=== PATIENT | male | born 1985 | race Two or more races ===

== ENCOUNTER 2017-08-07 20:43 | Emergency (ER) | payer SELFPAY ==
[~2017-08-07] VITALS: Ht 175.3 cm; Wt 78.0 kg
[2017-08-07 20:44] VITALS: BP 159/89
[2017-08-07] MEDS ORDERED: KETOROLAC 30 MG/1 ML ONE (21:45)
[2017-08-07] MEDS ORDERED: KETOROLAC 30 MG/1 ML IM ONE (22:00)
== END 2017-08-07 22:20 | disposition home or self-care (01) ==
LOC: ED 22:14
DX: S63.591A Other specified sprain of right wrist, initial encounter (principal); X50.3XXA Overexertion from repetitive movements, initial encounter; Y93.89 Activity, other specified; Y99.8 Other external cause status; Y92.69 Other specified industrial and construction area as the place of occurrence of the external cause
CPT/HCPCS: 29260; 73090; 73110; 96372; 99284; J1885

== ENCOUNTER 2017-08-25 23:43 | Emergency (ER) | payer SELFPAY ==
[~2017-08-25] VITALS: Ht 180.3 cm; Wt 83.0 kg
[2017-08-26] MEDS ORDERED: KETOROLAC 30 MG/1 ML IVPush ONE
[2017-08-26] MEDS ORDERED: KETOROLAC 30 MG/1 ML ONE (00:10)
[2017-08-26 00:16] LABS: BASOPHILS # (AUTO) 0.03 x10^3/uL (0-0.1); BASOPHILS % (AUTO) 0 % (0-1); EOSINOPHILS # (AUTO) 0.02 x10^3/uL (0-0.4); EOSINOPHILS % (AUTO) 0 % (1-7); LYMPHOCYTES # (AUTO) 1.47 x10^3/uL (1-3.4); LYMPHOCYTES % (AUTO) 25 % (22-44); MD NO; MEAN CORPUSCULAR VOLUME 94.2 fL (81-97); MEAN PLATELET VOLUME 7.4 fL (7.4-10.4); MONOCYTES # (AUTO) 0.61 x10^3/uL (0.2-0.8); MONOCYTES % (AUTO) 11 % (2-9); NEUTROPHILS # (AUTO) 3.67 x10^3/uL (1.8-6.8); NEUTROPHILS % (AUTO) 63 % (42-75); PLATELET COUNT 276 x10^3/uL (130-400); RED BLOOD COUNT 4.34 x10^6/uL (4.38-5.82); RED CELL DISTRIBUTION WIDTH 12.2 % (9.4-14.8)
[2017-08-26 00:32] LABS: ANION GAP 7 mmol/L (5-15); CALCIUM 8.3 mg/dL (8.5-10.1); CHLORIDE 110 mmol/L (98-107); CREATININE 0.82 mg/dL (0.7-1.3)
[2017-08-26 00:36] LABS: TROPONIN I < 0.015 ng/mL (0.000-0.045)
[2017-08-26] MEDS ORDERED: ACETAMINOPHEN 325 MG TABLET ONE (01:57)
[2017-08-26] MEDS ORDERED: ACETAMINOPHEN 325 MG TABLET PO ONE (02:00)
[2017-08-26] MEDS ORDERED: CEFTRIAXONE PMX 1GM/50ML 50 ML ONE (02:00)
[2017-08-26 02:20] VITALS: BP 115/71
[2017-08-26] MEDS ORDERED: CEFTRIAXONE PMX 1GM/50ML 50 ML IV ONE (02:30)
[2017-08-26] MEDS ORDERED: OMNIPAQUE 350 MG/ML, 100ML BOTTLE ONE (03:39)
== END 2017-08-26 02:23 | disposition home or self-care (01) ==
LOC: ED 23:59
DX: J15.9 Unspecified bacterial pneumonia (principal); F17.200 Nicotine dependence, unspecified, uncomplicated
CPT/HCPCS: 36415; 71045; 71275; 80048; 82040; 84484; 85025; 85379; 93005; 96365; 96375; 99285; J0696; J1885; Q9967